=== PATIENT | male | born 1995 | race Two or more races ===

== ENCOUNTER 2019-12-30 21:09 | Emergency (ER) | payer MEDICAID, OTHER ==
[~2019-12-30] VITALS: Ht 162.6 cm; Wt 56.7 kg
[2019-12-30 21:29] VITALS: BP 123/74
--- NOTE | 2019-12-30 21:36 | NUR ---
BIBS FROM HOME TO ER BED 9. AAOX4. NOT IN RESP DISTRESS. AMBULATORY W/ A LIMP ON STEADY GAIT. CAME IN FOR R KNEE PAIN X 1 WEEK. PER PT, HE HAS HISTORY OF TORN ACL ON HIS R KNEE. 1 WEEKS AGO, PT STATES THAT HE HEARD A CRAKING SOUND AND SINCE THE ITS BEEN HURTING AND RATE PAIN 7/10 WITH SENSATION OF GRINDING SHOOTING PAIN DOWN TO HIS LEG. ROM ON R KNEE IS LIMITED D/T PAIN. AWAITING MD FOR STACEY.
[2019-12-30] MEDS ORDERED: IBUPROFEN 600 MG TABLET PO ONE ×2 (21:51→22:00)
--- NOTE | 2019-12-30 22:08 | NUR ---
XRAY AT BEDSIDE
--- NOTE | 2019-12-30 23:18 | NUR ---
Patient discharged to home in stable condition. Written and verbal after care instructions given. Patient verbalizes understanding of instruction.ambulatory with a steady gait
== END 2019-12-30 23:19 | disposition home or self-care (01) ==
LOC: ER 21:10
DX: M25.561 Pain in right knee (principal); Z96.651 Presence of right artificial knee joint; Z98.890 Other specified postprocedural states; Z60.2 Problems related to living alone
CPT/HCPCS: 73564-TC